=== PATIENT | female | born 1955 | race African-American/Black ===

== ENCOUNTER 2016-08-06 22:11 | Emergency (ER) | payer OTHER ==
[~2016-08-06] VITALS: Ht 160 cm; Wt 63.5 kg
[~2016-08-06 22:11] MED LIST: BENADRYL50 MG PO; ELIMITE 5% CREA60 GM TOPIC; NKM; PERMETHRIN59 ML BC; PERMETHRIN59 ML TP; PERMETHRIN60 GM TOP; PREDNISONE10 MG PO; VICODIN 5-5001 EACH PO; Vitamins PO
--- NOTE | 2016-08-06 22:27 | Emergency Room Report ---
History of Present Illness General Chief Complaint: Multiple Trauma/Fall Source: Patient, EMS Present Illness HPI Patient is a 61-year-old female who presented after having increased right shoulder pain after fall. Patient reported having slipped and fell in a parking lot. Patient denied loss of consciousness. She reports having increased pain to her right shoulder as well as to her right hip and right knee. The patient reports having prior history of chronic back pain. Patient states that she began having increased pain after the fall. She stated she didn 't feel like anything is broken. She denied neck pain. She reported having some low back pain. Allergies: Coded Allergies: No Known Allergies (Unverified , 05/16/12) Patient History Past Medical History: see triage record Now: No Reviewed Nursing Documentation: PMH: Agreed, PSxH: Agreed Nursing Documentation-PMH Past Medical History: No History, Except For Review of Systems All Other Systems: negative except mentioned in HPI Physical Exam Vital Signs Date Time Temp Pulse Resp B/P Pulse Ox O2 Delivery O2 Flow Rate FiO2 08/06/16 22:06 98.6 87 16 137/87 98 Room Air Sp02 EP Interpretation: reviewed, normal General Appearance: normal inspection, well appearing, no apparent distress, alert, GCS 15 Head: atraumatic ENT: normal ENT inspection, hearing grossly normal, normal voice Neck: normal inspection, full range of motion, supple, no bony tend Respiratory: normal inspection, lungs clear, normal breath sounds, no respiratory distress, no retraction, no wheezing Cardiovascular #1: regular rate, rhythm, no edema Gastrointestinal: normal inspection, normal bowel sounds, non tender, soft, no guarding, no hernia Genitourinary: no CVA tenderness Musculoskeletal: normal inspection, normal range of motion, other - lumbar tenderness Neurologic: normal inspection, alert, oriented x3, responsive, 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 X-ray imaging was ordered due to patient's multiple locations of pain. X-ray imaging of the lumbar spine 3 views interpreted by me showed spondylolisthesis of L4 and L5 there is no evident fracture noted. The x-ray of the right shoulder 3 view interpreted by me showed a degenerative changes without evident fracture. The patient was placed in a sling. She was advised that there may be some other findings on x-ray report when it was read by the radiologist in the morning. The patient is advised to follow up with primary care doctor in 1-2 days. Patient is advised to return if any worsening condition or if any changes in status that are concerning. Last Vital Signs Date Time Temp Pulse Resp B/P Pulse Ox O2 Delivery O2 Flow Rate FiO2 08/06/16 22:06 98.6 87 16 137/87 98 Room Air Status: improved Disposition: HOME, SELF-CARE Condition: Stable Scripts Naproxen* (NAPROSYN*) 375 Mg Tablet 375 MG ORAL TWICE A DAY, #14 TAB 0 Refills Prov: Chalo Sullivan 08/06/16 Chalo Sullivan Aug 06, 2016 22:27
[2016-08-06] MEDS ORDERED: Ketorolac 60mg Inj IM ONE (22:30)
[2016-08-06 23:05] VITALS: BP 137/87
[2016-08-06] MEDS ORDERED: NAPROXEN375 MG ORAL (23:20)
[2016-08-06 23:35] VITALS: BP 137/87
--- NOTE | 2016-08-07 09:45 | Diagnostic Imaging Report ---
Indication: Back pain Technique: Lumbar spine 3 views Comparison: None Findings: There is no gross fracture. There is approximately 3 mm anterolisthesis of L3 on L4 and 7 mm anterolisthesis of L4 on L5. There is mild disc space narrowing of L1/L2, L2/L3 and moderate disc space narrowing of L3/L4 and L4/L5. There is severe disc space narrowing of L5/S1 with vacuum phenomenon and endplate sclerosis. Degenerative facet changes are present. There is osteopenia. Atherosclerotic changes are noted. Impression: No gross fracture. Further evaluation recommended as indicated. Anterolisthesis of L3 on L4 and L4 on L5. Degenerative lumbar spondylosis.
--- NOTE | 2016-08-07 09:47 | Diagnostic Imaging Report ---
Indication: Right shoulder pain Technique: XRAY SHOULDER MIN 3V RIGHT Comparison: None Findings: There is no acute fracture or dislocation. Degenerative changes of the glenohumeral joint and acromioclavicular joint are present. 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 There is osteopenia. Impression: No acute osseous abnormality. Acromioclavicular and glenohumeral degenerative changes.
--- NOTE | 2016-08-09 11:05 | Diagnostic Imaging Report ---
Indication: Pelvic pain status post fall Technique: XRAY PELVIS 1 VIEW Comparison: None Findings: There is no radiographically evident acute fracture or dislocation. There is degenerative spurring and mild to moderate joint space narrowing of the right hip with degenerative cystic changes of the femoral head. Degenerative sclerosis of the pubic symphysis is noted. Atherosclerotic changes are present. Impression: No radiographically evident acute fracture or dislocation. If there is continued clinical concern for acute osseous injury, further evaluation recommended. Right hip degenerative changes.
== END 2016-08-06 23:35 | disposition home or self-care (01) ==
LOC: EDBD 22:11 → EMR 22:27
DX: S40.011A Contusion of right shoulder, initial encounter (principal); M43.16 Spondylolisthesis, lumbar region; M19.90 Unspecified osteoarthritis, unspecified site; W01.0XXA Fall on same level from slipping, tripping and stumbling without subsequent striking against object, initial encounter; Y93.9 Activity, unspecified; Y92.9 Unspecified place or not applicable
CPT/HCPCS: 72020; 72170; 96372; 99284